=== PATIENT | female | born 1995 | race Two or more races ===

== ENCOUNTER 2017-12-21 12:18 | Emergency (ER) | payer BC ==
[~2017-12-21] VITALS: Ht 160 cm; Wt 72.6 kg
[2017-12-21] VITALS (10 sets, daily range): BP systolic 74–146; BP diastolic 40–74
--- NOTE | 2017-12-21 12:43 | Emergency Room Report ---
History of Present Illness General Chief Complaint: Overdose Source: EMS (Roxana Schafer) Present Illness HPI 21-year-old female presents emergency department brought by ambulance for altered mental status. According to boyfriend who was at home with the patient patient was injecting heroin and cocaine. EMS reports that upon arrival patient had agonal breathing so they administered 2 mg of Narcan twice for a total of 4 mg. Per EMS patient became more alert but then had a 15 second tonic -clonic seizure. At this time history of present illness and past medical history is limited due to patient having altered mental status. (Roxana Schafer) Allergies: Coded Allergies: CLINDAMYCIN (Verified Allergy, Unknown, 12/21/17) Patient History Limited by: other - AMS Past Medical History: see triage record Past Surgical History: unable to obtain Pertinent Family History: unable to obtain Social History: Reports: drug use Reviewed Nursing Documentation: PMH: Agreed; PSxH: Agreed (Roxana Schafer) Nursing Documentation-PMH Past Medical History: No History, Except For Hx Cardiac Problems: No - POLY SUBSTANCE ABUSE (Roxana Schafer.Gopal) Review of Systems All Other Systems: limited - AMS (Roxana Schafer.AChristiano) Physical Exam Vital Signs Date Time Temp Pulse Resp B/P (MAP) Pulse Ox O2 Delivery O2 Flow Rate FiO2 12/21/17 12:15 147 24 110/74 96 Simple Mask 15.0 Sp02 EP Interpretation: reviewed, normal, abnormal - mild hypoxia 89%-92% on RA General Appearance: lethargic - moaning Head: normocephalic, atraumatic Eyes: bilateral eye PERRL - pupils not pinpoint ENT: hearing grossly normal, normal voice Neck: no bony tend Respiratory: chest non-tender, lungs clear, normal breath sounds - Clear on arrival- posterior ascultation , re-evaluation some bilateral crackles- Anterior chest ascultation., speaking full sentences Cardiovascular #1: normal capillary refill, tachycardia Gastrointestinal: normal bowel sounds, non tender, soft Rectal: deferred Genitourinary: deferred Musculoskeletal: back normal, normal range of motion, non-tender Neurologic: alert, oriented x3 - Pt. is arousable and able to answer questions , responsive, motor strength/tone normal, sensory intact, speech normal, grossly normal Psychiatric: judgement/insight normal, no suicidal/homicidal ideation Skin: normal color, no rash, warm/dry, well hydrated, other - no abscesses noted- pt. reports IVDU (Roxana Schafer) Procedures Critical Care Time Critical Care Time i. I feel this is a highly complex case requiring extensive working including EKG/Rhythm strip, Xray/CT/US, Blood/urine lab work, repeat exams while in ED, and administration of strong opiates/narcotics for pain control, admission to hospital or close patient follow up. Total time: 30 min bedside evaluation and treatment excludes procedures (EKG). Reason for critical care: hypoxic, hypotensive, pneumomediastinum. elevated troponin Possible complications: hypotension, hypertension, TN, shock, arrhythmias, metabolic acidosis, end organ damage, respiratory failure. Interventions: labs, IVFS, EKG, CXR, narcan, zosyn, azithromycin, CTA chest, central line Course: Patient presenting with overdose after cocaine and heroine use. Patient remains hypoxic and hypotensive after repeated Narcan doses and IV boluses. Crackles on exam. Chest x-ray shows bilateral opacities. trop 0.35. CTA chest shows pneumomediastinum. given broad spectrum abx. central line placed. discussed [facility] CT surgeon at [facility] and they accepted patient for transfer Consultations: nursing staff, EMS, family Performed by: Dr Suárez Tolerated well condition = critical j. because of unstable vital signs this patient had a condition that could potentially threaten life or limb. I feel this is a critical patient who required my full attention while patient was considered critical. Total Critical Care Time excluding procedures was greater than 35 minutes (Rome Suárez MD) Central Line Central Line : Consent: Emergent Central Line Lumen: triple Maximal Sterile Barrier Tech: yes cap, yes mask, yes sterile gown, yes sterile gloves, yes large sterile sheet, yes hand hygiene, yes chlorhexidine prep Central Line Postion: femoral (R) Anesthesia: Lidocaine Complications: none Central Line Post Position: sutured, good blood return Attempts: One Patient Tolerated: Well Complications: None (Rome Suárez MD) Medical Decision Making PA Attestation Dr. Rapp is my supervising Physician whom patient management has been discussed with. (Roxana Schafer) Diagnostic Impression: Primary Impression: Drug overdose Qualified Codes: T50.904A - Poisoning by unspecified drugs, medicaments and biological substances, undetermined, initial encounter Additional Impressions: Pneumomediastinum Hypoxia ER Course 21-year-old female presents emergency department brought by ambulance for altered mental status. According to boyfriend who was at home with the patient patient was injecting heroin and cocaine. EMS reports that upon arrival patient had agonal breathing so they administered 2 mg of Narcan twice for a total of 4 mg. Per EMS patient became more alert but then had a 15 second tonic -clonic seizure. At this time history of present illness and past medical history is limited due to patient having altered mental status. Ddx considered but are not limited to Respiratory depression, Cardiac ischemia, seizures, hypoxia, acidosis, polysubstance intoxication just to name a few. Vital signs: pt. is afebrile, Tachycardic in the 130's bpm H&PE are most consistent with Polysubstance intoxication with some hypoxia on RA. ORDERS: -Initial Bed Side AccuCheck: 61 Intervention: 25ml D50 ReAssessment Accucheck : 113- normal -EKG: Tachycardia 137bpm non-specific T wave changes, no acute ST Segment changes, RBBB -CBC -CMP: WNL Unremarkable CO2 normal, electrolytes ok. -Acetominophen and Salicylate Levels:WNL -UDS: Positive for Opiates and Cocaine - UA: -Troponin: 0.349 ED INTERVENTIONS: - Patient is placed on cardiac monitoring, and IV access was established. Pt. noted to have low O2 sat so patient was placed on nonrebreather at 15 L/m resulting in O2 sat of 97-100%. - 50ML Bicarb IV - 25ml D50 IV - 1 Liter NS Bolus IV X4 Telephone consult with cardiothoracic surgeon Dr. Pizano. Dr. Pizano agrees to consult on this patient, and is aware of our results and results of imaging showing pneumomediastinum. DISPOSITION: at this time pt. will be admitted ICU under the medical management of Dr. Angel for Pneumomediastinum and bilateral lung infiltrates, hypoxia. Dr. Angel agreed to admit the pt. and to continue pt. care management, he is aware of CT Surg Consult Dr. PIZANO. Labs Test 12/21/17 12:30 6/2/18 12:40 12/21/17 16:25 12/21/17 17:00 Urine Color Pale yellow Urine Appearance Clear Urine pH 5 (4.5-8.0) Urine Specific [place] 1.025 (1.005-1.035) Urine Protein 2+ (NEGATIVE) Urine Glucose (UA) 4+ (NEGATIVE) Urine Ketones Negative (NEGATIVE) Urine Occult Blood 1+ (NEGATIVE) Urine Nitrite Negative (NEGATIVE) Urine Bilirubin Negative (NEGATIVE) Urine Urobilinogen Normal MG/DL (0.0-1.0) Urine Leukocyte Esterase Negative (NEGATIVE) Urine RBC 0-2 /HPF (0 - 2) Urine WBC 0-2 /HPF (0 - 2) Urine Squamous Epithelial Cells Few /LPF (NONE/OCC) Urine Amorphous Sediment Few /LPF (NONE) Urine Bacteria Few /HPF (NONE) Urine Mucus Few /LPF (NONE/OCC) Urine HCG, Qualitative Negative (NEGATIVE) Urine Opiates Screen Positive (NEGATIVE) Urine Barbiturates Screen Negative (NEGATIVE) Phencyclidine (PCP) Screen Negative (NEGATIVE) Urine Amphetamines Screen Negative (NEGATIVE) Urine Benzodiazepines Screen Negative (NEGATIVE) Urine Cocaine Screen Positive (NEGATIVE) Urine Marijuana (THC) Screen Negative (NEGATIVE) White Blood Count 11.8 K/UL (4.8-10.8) Red Blood Count 4.98 M/UL (4.20-5.40) Hemoglobin 15.8 G/DL (12.0-16.0) Hematocrit 48.1 % (37.0-47.0) Mean Corpuscular Volume 97 FL (80-99) Mean Corpuscular Hemoglobin 31.7 PG (27.0-31.0) Mean Corpuscular Hemoglobin Concent 32.9 G/DL (32.0-36.0) Red Cell Distribution Width 11.6 % (11.6-14.8) Platelet Count 283 K/UL (150-450) Mean Platelet Volume 6.7 FL (6.5-10.1) Neutrophils (%) (Auto) 79.9 % (45.0-75.0) Lymphocytes (%) (Auto) 9.6 % (20.0-45.0) Monocytes (%) (Auto) 9.7 % (1.0-10.0) Eosinophils (%) (Auto) 0.0 % (0.0-3.0) Basophils (%) (Auto) 0.8 % (0.0-2.0) Sodium Level 141 MMOL/L (136-145) Potassium Level 4.2 MMOL/L (3.5-5.1) Chloride Level 104 MMOL/L (98-107) Carbon Dioxide Level 24 MMOL/L (21-32) Anion Gap 13 mmol/L (5-15) Blood Urea Nitrogen 19 mg/dL (7-18) Creatinine 1.1 MG/DL (0.55-1.30) Estimat Glomerular Filtration Rate > 60 mL/min (>60) Glucose Level 79 MG/DL (74-106) Calcium Level 8.4 MG/DL (8.5-10.1) Total Bilirubin 0.1 MG/DL (0.2-1.0) Aspartate Amino Transf (AST/SGOT) 41 U/L (15-37) Alanine Aminotransferase (ALT/SGPT) 39 U/L (12-78) Alkaline Phosphatase 94 U/L (46-116) Total Creatine Kinase 225 U/L (26-308) Troponin I 0.349 ng/mL (0.000-0.056) Total Protein 8.1 G/DL (6.4-8.2) Albumin 4.2 G/DL (3.4-5.0) Globulin 3.9 g/dL Albumin/Globulin Ratio 1.1 (1.0-2.7) Salicylates Level 2.2 ug/mL (2.8-20) Acetaminophen Level < 2 MCG/ML (10-30) Serum Alcohol < 3 mg/dL Arterial Blood pH 7.266 (7.350-7.450) Arterial Blood Partial Pressure CO2 45.6 mmHg (35.0-45.0) Arterial Blood Partial Pressure O2 61.5 mmHg (75.0-100.0) Arterial Blood HCO3 20.3 mmol/L (22.0-26.0) Arterial Blood Oxygen Saturation 91.2 % (92.0-98.0) Arterial Blood Base Excess -6.6 Harley Test Positive Lactic Acid Level 1.80 mmol/L (0.4-2.0) (Roxana Schafer) EKG Diagnostic Results EP Interpretation: Dr. Rapp Rate: tachycardiac - 137 bpm Rhythm: NSR ST Segments: no acute changes Other Impression Incomplete RBBB, Tachycardic, normal axis-no deviation, non specific T-wave inversions without reciprocal changes. ASA given to the pt in ED: No PA Scribe Text This Interpretation was scribed by BLAKE Schafer. (Roxana Schafer) Chest X-Ray Diagnostic Results Chest X-Ray Diagnostic Results : Chest X-Ray Ordered: Yes # of Views/Limited/Complete: 1 View Indication: Chest Pain EP Interpretation: Yes PA Xray: Interpretation reviewed, by supervising MD, and agrees with findings. Interpretation: no effusion, no pneumothorax, no acute cardiopulmonary disease, other - Patchy Infiltrates bilaterally. Impression: Other - Abnormal Electronically Signed by: Roxana Schafer PA-C (Roxana Schafer) CT/MRI/US Diagnostic Results CT/MRI/US Diagnostic Results : Imaging Test Ordered: CTA Chest Impression "Lung infiltrate seen bilaterally worse in the left upper lobe. Mediastinum: Gases seen in the mediastinum at least some of which appears located within the venous structures such as the left brachiocephalic vein there is also question of some pneumomediastinum adjacent to the pulmonary trunk, right atrium, and along the right side of the distal esophagus question of some mild infiltration of the mediastinal fat. Mild ascites noted near the liver" Per official radiology report- Please see report for specific details. (Roxana Schafer) Last Vital Signs Date Time Temp Pulse Resp B/P (MAP) Pulse Ox O2 Delivery O2 Flow Rate FiO2 12/21/17 12:15 147 24 110/74 96 Simple Mask 15.0 (Roxana Schafer) Disposition: ADMITTED INPATIENT Condition: Serious Roxana Schafer Dec 21, 2017 12:43 Rome Suárez MD Dec 21, 2017 21:19
[2017-12-21] MEDS ORDERED: Sodium Bicarbonate 50ml Carp IV ONE (12:45)
[2017-12-21 12:59] LABS: APPEARANCE,URINE CLEAR; BILIRUBIN, URINE NEGATIVE (NEGATIVE); COLOR,URINE PALE YELLOW; GLUCOSE, URINE (UA) 4+ (NEGATIVE); KETONES,URINE NEGATIVE (NEGATIVE); LEUKOCYTE ESTERASE ,URINE NEGATIVE (NEGATIVE); NITRITE,URINE NEGATIVE (NEGATIVE); PH,URINE 5 (4.5-8.0); PROTEIN,URINE 2+ (NEGATIVE); UROBILINOGEN,URINE NORMAL MG/DL (0.0-1.0)
[2017-12-21 13:05] LABS: BASOPHILS % (AUTO) 0.8 % (0.0-2.0); HEMATOCRIT 48.1 % (37.0-47.0); HEMOGLOBIN 15.8 G/DL (12.0-16.0); LYMPHOCYTES % (AUTO) 9.6 % (20.0-45.0); MEAN CORPUSCULAR VOLUME 97 FL (80-99); MONOCYTES % (AUTO) 9.7 % (1.0-10.0); NEUTROPHILS % (AUTO) 79.9 % (45.0-75.0); PLATELET COUNT 283 K/UL (150-450); RED BLOOD COUNT 4.98 M/UL (4.20-5.40); RED CELL DISTRIBUTION WIDTH 11.6 % (11.6-14.8); WHITE BLOOD COUNT 11.8 K/UL (4.8-10.8)
[2017-12-21 13:12] LABS: ANION GAP 13 mmol/L (5-15); BLOOD UREA NITROGEN 19 mg/dL (7-18); CALCIUM 8.4 MG/DL (8.5-10.1); CARBON DIOXIDE 24 MMOL/L (21-32); CHLORIDE 104 MMOL/L (98-107); CREATININE 1.1 MG/DL (0.55-1.30); POTASSIUM 4.2 MMOL/L (3.5-5.1); SODIUM 141 MMOL/L (136-145)
[2017-12-21 13:17] LABS: ALANINE AMINOTRANSFERASE 39 U/L (12-78); ALBUMIN 4.2 G/DL (3.4-5.0); ALBUMIN/GLOBULIN RATIO 1.1 (1.0-2.7); ALKALINE PHOSPHATASE 94 U/L (46-116); ASPARTATE AMINO TRANSFERASE 41 U/L (15-37); BILIRUBIN,TOTAL 0.1 MG/DL (0.2-1.0)
[2017-12-21] MEDS ORDERED: Naloxone 1mg/ml 2ml IVP ONE ×2 (15:30→16:00)
[2017-12-21] MEDS ORDERED: Ketorolac 30mg Inj IV ONE (15:30)
[2017-12-21 16:29] LABS: CREATINE KINASE 225 U/L (26-308)
[2017-12-21] MEDS ORDERED: Isovue-370 150ml vial INJ PRN (16:45)
[2017-12-21] MEDS ORDERED: Piperacillin/Tazobactam 3.375 GM in NS 110 ML IVPB ONE (16:45)
--- NOTE | 2017-12-21 16:53 | Diagnostic Imaging Report ---
EXAM: XR Chest, 1 View CLINICAL HISTORY: PAIN TECHNIQUE: Frontal view of the chest. COMPARISON: No relevant prior studies available. FINDINGS: Lungs: Bilateral pulmonary opacities, left greater than right. Pleural space: Unremarkable. No pneumothorax. Heart: Unremarkable. No cardiomegaly. Mediastinum: Unremarkable. Bones/joints: No acute fracture. Soft tissues: Nipple piercings. IMPRESSION: Bilateral pulmonary opacities, left greater than right.
[2017-12-21] MEDS ORDERED: NKM (18:18)
--- NOTE | 2017-12-21 18:50 | Diagnostic Imaging Report ---
EXAM: CT Angiography Chest With Intravenous Contrast CLINICAL HISTORY: PAIN TECHNIQUE: Axial computed tomographic angiography images of the chest with intravenous contrast using pulmonary embolism protocol. CTDI is 0.17, 12. 62, 12.62, 37.87, 21.91 mGy and DLP is 593 mGy-cm. One or more of the following dose reduction techniques were used: automated exposure control, adjustment of the mA and/or kV according to patient size, use of iterative reconstruction technique. MIP reconstructed images were created and reviewed. Coronal and sagittal reformatted images were created and reviewed. COMPARISON: Chest x-ray performed on the same day. FINDINGS: Pulmonary arteries: Evaluation for pulmonary embolism is limited secondary to motion artifact. No definite pulmonary embolism is appreciated. Aorta: The aorta is unremarkable. No thoracic aortic aneurysm. Lungs: Infiltrates are seen in the lungs bilaterally. This appears worst in the left upper lobe. An acute infectious/inflammatory process should be considered. Pleural space: No definite evidence for pneumothorax. Very small bilateral pleural effusions are suspected. Heart: Unremarkable. No cardiomegaly. No significant pericardial effusion. No evidence of RV dysfunction. Mediastinum: Gas is seen in the mediastinum at least some of which appears located within venous structures such as the left brachiocephalic vein. This is likely related to gas introduced during venous access. There is also question of some pneumomediastinum adjacent to the pulmonary trunk, right atrium, and along the right side of the distal esophagus. The source of the suspected small amount of pneumomediastinum is unclear. Differential diagnostic considerations include, but are not limited to, alveolar rupture, tracheobronchial rupture, esophageal rupture, or mediastinitis. Question of some mild infiltration of the mediastinal fat. Mediastinitis cannot be excluded. Bones/joints: No acute fracture. No dislocation. Soft tissues: Unremarkable. Lymph nodes: Unremarkable. No enlarged lymph nodes. Intraperitoneal space: Some ascites is suspected adjacent to the liver. IMPRESSION: 1. Gas is seen in the mediastinum at least some of which appears located within venous structures such as the left brachiocephalic vein. This is likely related to gas introduced during venous access. There is also question of some pneumomediastinum adjacent to the pulmonary trunk, right atrium, and along the right side of the distal esophagus. The source of the suspected small amount of pneumomediastinum is unclear. Differential diagnostic considerations include, but are not limited to, alveolar rupture, tracheobronchial rupture, esophageal rupture, or mediastinitis. 2. Question of some mild infiltration of the mediastinal fat. Mediastinitis cannot be excluded. 3. Infiltrates are seen in the lungs bilaterally. This appears worst in the left upper lobe. An acute infectious/inflammatory process should be considered. 4. Evaluation for pulmonary embolism is limited secondary to motion artifact. No definite pulmonary embolism is appreciated. 5. Some ascites is suspected adjacent to the liver. Critical Value Communications 12/21/17 18:52 Call Doctor Regarding Above results, called Dr. Suárez on 12/21 18:51 (-07:00)
--- NOTE | 2017-12-22 16:45 | Cardiology Report ---
APPROVED REPORT EKG Measurement Heart [id number] WA [id number] Sinus tachycardia Otherwise normal ECG
--- NOTE | 2017-12-22 16:47 | Cardiology Report ---
APPROVED REPORT EKG Measurement Heart [id number] [place] [id number] Sinus tachycardia Right atrial enlargement Pulmonary disease pattern Incomplete right bundle branch block Right ventricular hypertrophy with repolarization abnormality Nonspecific T wave abnormality Abnormal ECG
== END 2017-12-21 22:35 | disposition other institution (70) ==
LOC: EDBD 12:18 → EMR 13:56 → EDBD 13:56 → EDBEDREQ 19:19 → EDBEDREQSVC 19:19 → CANBEDREQ 22:13 → EMR 22:35
DX: T40.5X1A Poisoning by cocaine, accidental (unintentional), initial encounter (principal); T40.1X1A Poisoning by heroin, accidental (unintentional), initial encounter; Y92.009 Unspecified place in unspecified non-institutional (private) residence as the place of occurrence of the external cause; J98.2 Interstitial emphysema; R09.02 Hypoxemia; I95.9 Hypotension, unspecified
CPT/HCPCS: 36415; 36600; 71045; 71275; 80053; 80307; 81003; 81025; 82550; 82803; 82962; 83605; 84484; 85025; 87040; 93005; 96360; 96361; 96375; 96376; 99291; G0480; J1885; J2310; J2405; J2543; Q9967; 80329; 99285